=== PATIENT | female | born 1990 | race Caucasian/White ===

== ENCOUNTER 2017-10-23 21:12 | Emergency (ER) | payer MEDICAID ==
[2017-10-23 21:27] VITALS: O2SAT 99
[2017-10-23] MEDS ORDERED: Sodium Chloride 0.9% 1,000 ML IV ONE (22:03)
--- NOTE | 2017-10-23 22:14 | C.PDOC ---
History Of Present Illness Patient is a 27 y/o female who presents to the ED with a complaint of right lower quadrant abdominal pain since earlier today. Patient denies taking any medicine for pain. Patient does not know if she is . No other physical complaints at this time. Time Seen by Provider: 10/23/17 21:50 Chief Complaint (Nursing): Abdominal Pain History Per: Patient History/Exam Limitations: no limitations Onset/Duration Of Symptoms: Hrs (earlier today ) Current Symptoms Are (Timing): Still Present Location Of Pain/Discomfort: RLQ Associated Symptoms: denies: Fever, Chills Recent travel outside of the [place]: No Past Medical History Reviewed: Historical Data, Nursing Documentation, Vital Signs Vital Signs: Last Vital Signs Temp 98.3 F 10/23/17 21:13 Pulse 85 10/23/17 21:13 Resp 20 10/23/17 21:13 BP 120/77 10/23/17 21:13 Pulse Ox 99 10/23/17 22:59 - Medical History PMH: No Chronic Diseases Surgical History: No Surg Hx Family History: States: No Known Family Hx - Social History Hx Tobacco Use: No Hx Alcohol Use: No Hx Substance Use: No - Immunization History Hx Tetanus Toxoid Vaccination: No Review Of Systems Constitutional: Negative for: Fever, Chills Gastrointestinal: Positive for: Abdominal Pain (right lower quadrant) Physical Exam - Physical Exam Appears: Non-toxic, No Acute Distress Skin: Normal Color, Warm, Dry Head: Atraumatic, Normacephalic Oral Mucosa: Moist Chest: Symmetrical Cardiovascular: Rhythm Regular, No Murmur Respiratory: Normal Breath Sounds, No Rales, No Rhonchi, No Wheezing Gastrointestinal/Abdominal: Tenderness (exquisite tenderness to RLQ), Other ( questionable positive Rovsing's sign) ED Course And Treatment - Laboratory Results Result Diagrams: 10/23/17 22:26 10/23/17 22:26 Lab Interpretation: Normal (ua neg.) Urine POC: Negative O2 Sat by Pulse Oximetry: 99 - Radiology CXR: Interpreted by Dc CXR Interpretation: Yes: No Acute Disease Progress Note: Obstructive series, blood work, UA, and HCG urine ordered. Toradol and IV fluids administered. Medical Decision Making Medical Decision Making: constipation NO LOW susp of ovarian etiology agrees to trial laxative and return in AM PRN Disposition Doctor Will See Patient In The: Office Counseled Patient/Family Regarding: Studies Performed, Diagnosis - Disposition Disposition: HOME/ ROUTINE Disposition Time: 23:22 Condition: GOOD Forms: [facility] (Yoruba) - Clinical Impression Clinical Impression: Colicky RLQ abdominal pain - Scribe Statement The provider has reviewed the documentation as recorded by the Scribe Tracy Collado All medical record entries made by the Scribe were at my direction and personally dictated by me. I have reviewed the chart and agree that the record accurately reflects my personal performance of the history, physical exam, medical decision making, and the department course for this patient. I have also personally directed, reviewed, and agree with the discharge instructions and disposition.
[2017-10-23] MEDS ORDERED: Sodium Chloride 0.9% 1,000 ML ONE (22:15)
[2017-10-23 22:33] LABS: BASO # 0.1 K/uL (0.0-0.2); BASO % 0.8 % (0.0-2.0); EOS # 0.1 K/uL (0.0-0.7); EOS % 1.3 % (0.0-4.0); HEMOGLOBIN 11.6 g/dL (11.0-16.0); LYMPH % 23.3 % (20.0-40.0); MEAN CORPUSCULAR HEMOGLOBIN 26.4 pg (27.0-31.0); MEAN CORPUSCULAR HGB CONC 33.9 g/dL (33.0-37.0); MEAN PLATELET VOLUME 7.6 fL (7.2-11.7); MONO # 0.7 K/uL (0.0-0.8); MONO % 8.3 % (0.0-10.0); NEUT # 5.6 K/uL (1.8-7.0); NEUT % 66.3 % (50.0-75.0); RBC 4.38 Mil/uL (3.80-5.20); RED CELL DISTRIBUTION WIDTH 14.7 % (11.5-14.5); WHITE BLOOD COUNT 8.5 K/uL (4.8-10.8)
[2017-10-23 22:36] LABS: HCG,QUALITATIVE URINE NEGATIVE (NEGATIVE)
[2017-10-23 22:38] LABS: SQUAMOUS EPITHIAL 11 /hpf (0-5); URINE BACTERIA RARE (<OCC); URINE BILIRUBIN NEGATIVE (NEGATIVE); URINE CLARITY Hazy (Clear); URINE COLOR Yellow (YELLOW); URINE GLUCOSE (UA) NORMAL (Normal); URINE LEUKOCYTE ESTERASE TRACE Leu/uL (Negative); URINE PROTEIN NEGATIVE (NEGATIVE); URINE UROBILINOGEN NORMAL mg/dL (0.2-1.0)
[2017-10-23 22:39] LABS: URINE BLOOD TRACE (NEGATIVE)
[2017-10-23 22:47] LABS: ALB/GLOB RATIO 1.3 (1.0-2.1); ALBUMIN 3.8 g/dL (3.5-5.0); ALT/SGPT 15 U/L (9-52); AST/SGOT 15 U/L (14-36); BLOOD UREA NITROGEN 5 mg/dL (7-17); CALCIUM 9.1 mg/dl (8.6-10.4); GFR AFRICAN-AMERICAN > 60; GFR NON-AFRICAN AMERICAN > 60; LIPASE 45 U/L (23-300)
[2017-10-23] MEDS ORDERED: Magnesium Citrate Oral SOL (300 ml) PO ONE (23:19)
[2017-10-23] MEDS ORDERED: Magnesium Citrate Oral SOL (300 ml) ONE (23:34)
[2017-10-23 23:41] VITALS: BP 109/70; PULSE 68; RESP 18; TEMP 98.5
--- NOTE | 2017-10-24 08:33 | RAD ---
Abdomen four views History: Abdominal pain. Comparison: None available. Findings: Lung umanzor are clear. Bibasilar breast and nipple shadows. Heart size within normal limits. Fecal retention in the colon. No evidence of gross obstruction. Impression: Fecal retention in the colon. If pain persists, consider correlation with CT.
== END 2017-10-23 23:50 | disposition home or self-care (01) ==
LOC: C.ER 21:12
DX: R10.31 Right lower quadrant pain (principal)
CPT/HCPCS: 74022; 80053; 81001; 83690; 84703; 85025; 96374; 99284; J1885; J7030